=== PATIENT | female | born 2000 | race African-American/Black ===

== ENCOUNTER 2022-07-16 02:49 | Emergency (ER) | payer OTHER, SELFPAY ==
[2022-07-16 02:50] VITALS: BP 145/78; PULSE 110; RESP 18; TEMP 37.8; O2SAT 99
[2022-07-16 02:54] VITALS: BP 145/84; PULSE 110; RESP 18; TEMP 37.8; O2SAT 99; BMI 27.8
[2022-07-16 03:23] VITALS: TEMP 37.8
[2022-07-16] MEDS: ACETAMINOPHEN 500 MG TABLET 1000 MG PO (03:23)
--- NOTE | 2022-07-16 03:23 | ED.GENADULT ---
HPI - General Adult General Chief complaint: Fever Stated complaint: pollen allergies,fever over 100 Time Seen by Provider: 07/16/22 02:53 Source: patient Mode of arrival: ambulatory History of Present Illness HPI narrative: 22-year-old female presents to the emergency department with eye irritation, congestion and mild headache for the past 3 hours. She reports that she started feeling mildly unwell 2 days ago but no specific localizing symptoms. On specific questioning, she tells me that she took Tylenol and ibuprofen for her symptoms but is not able to accurately list me timing or dose of these and contradicts her answer several times making me question if she did try these interventions. There is no severe shortness of breath, no syncope or dizziness. There has been no vomiting. There is no abdominal pain, dysuria or gynecological symptoms. Last menstrual period was last week. There has been no trauma or injury. It is the middle of the night in the emergency department I am having some difficulty understanding what her emergent concern is with her symptoms and do ask for clarification. She is concerned that she could be dehydrated. She assures me that she is still drinking plenty of fluids and has urinated at least 5 times today. She says that her urine is a little dark but has absolutely no dysuria, urgency or frequency. She tells me that her only long-term health problem is asthma. She takes a preventative inhaler, has albuterol she also uses Flonase and Zyrtec. She uses Patanol eyedrops. Denies intoxication or illicit drug use, no pertinent travel. She is COVID vaccinated x4. ROS is notable for the generalized, HEENT symptoms as above only as well as some mild nausea, otherwise denies times 12 systems. Related Data Home Medications Medication Instructions Recorded Confirmed cetirizine 10 mg disintegrating 10 mg PO DAILY 03/31/22 07/16/22 tablet fluticasone furoate 50 1 inh inhalation DAILY 03/31/22 07/16/22 mcg/actuation blister powder for inhalation fluticasone propionate 50 2 spray intranasal DAILY 03/31/22 07/16/22 mcg/actuation nasal spray,suspension olopatadine 0.1 % eye drops 1 drp ophthalmic (eye) DAILY 03/31/22 07/16/22 Allergies Allergy/AdvReac Type Severity Reaction Status Date / Time No Known Drug Allergies Allergy Verified 07/16/22 02:57 [facility] Medical History No significant past medical history Surgical History No significant past surgical history Social History Smoking Status: Never smoker Second hand tobacco smoke exposure: No How often do you have a drink containing alcohol: never How often do you have six or more drinks on one occasion: Never AUDIT-C Alcohol total score: 0 Non-prescribed substance use: denies use Exam Const: Vital Signs, click to edit/add: Vital Signs - 24 hr 07/16/22 02:50 07/16/22 02:54 Temperature 100.0 F H 100.0 F H Pulse Rate [Right Pulse Oximeter] 110 H 110 H Respiratory Rate 18 18 Blood Pressure [Ri ght Arm] 145/78 H Blood Pressure [Ri ght Upper Arm] 145/84 H Pulse Oximetry 99 99 Oxygen Delivery Me thod Room Air Room Air Documenting provider has reviewed patient's vital signs: yes Common normals: no apparent distress General appearance: cooperative, comfortable and well kempt Other: Appears well-nourished, well-hydrated, good historian. HENMT: Common normals: normocephalic and TM's normal bilaterally Head and scalp: normocephalic Face and sinus: normal facial exam Tympanic membrane: TM's normal bilaterally Other: Nose with mild congestion, oropharynx with a mild postnasal drip, good dentition, normal mucosa. Lips are acyanotic. Eye: Common normals: conjunctivae normal General eye: normal appearance of both eyes Conjunctiva: conjunctiva(e) normal Other: No drainage or swelling of the medial canthus. Neck & C-Spine: Common normals: full ROM and no lymphadenopathy Resp: Common normals: normal respiratory effort, no use of accessory muscles and clear to auscultation bilaterally Effort & inspection: able to speak in complete sentences Auscultation: clear to auscultation bilaterally Cardio: Common normals: regular rate, regular rhythm, S1 normal heart sound, S2 normal heart sound and no murmurs Rate: regular rate Rhythm: regular rhythm Heart sounds: S1 normal and S2 normal GI: Common normals: Normal to inspection, nondistended, normoactive bowel sounds present, soft to palpation, non-tender, no hepatosplenomegaly and no masses Palpation: soft and no hepatosplenomegaly Extremity: Common normals: normal to inspection and no pedal edema Psych: Appearance: well kempt Attitude: engaged Activity/motor behavior: appropriate eye contact Insight: insight good Judgement: judgment good Skin: Common normals: no rashes or lesions noted General skin exam: no rashes or lesions noted Course Vital Signs Vital signs: Initial Vital Signs Temperature 100.0 F H 07/16/22 02:50 Temperature Source Temporal Artery Scan 07/16/22 02:50 Pulse Rate 110 H 07/16/22 02:50 Respiratory Rate 18 07/16/22 02:50 Respiratory Effort Normal, Spontaneous, Non-Labored 07/16/22 02:50 Respiratory Depth Normal 07/16/22 02:50 Respiratory Pattern Normal 07/16/22 02:50 Blood Pressure 145/78 H 07/16/22 02:50 Blood Pressure Mean 100 07/16/22 02:50 Blood Pressure Position Sitting 07/16/22 02:50 Pulse Oximetry 99 07/16/22 02:50 Oxygen Delivery Method Room Air 07/16/22 02:50 Sepsis Recent Fever Within 48 Hours No 07/16/22 02:50 Sepsis New/Unexplained Change in Mental Status No 07/16/22 02:50 Sepsis Action Taken by Nursing No Action Required 07/16/22 02:50 Vital Signs Temperature 100.0 F H 07/16/22 02:50 Pulse Rate 110 H 07/16/22 02:50 Respiratory Rate 18 07/16/22 02:50 Blood Pressure 145/78 H 07/16/22 02:50 Pulse Oximetry 99 07/16/22 02:50 Oxygen Delivery Method Room Air 07/16/22 02:50 Temperature 100.0 F H 07/16/22 02:54 Pulse Rate 110 H 07/16/22 02:54 Respiratory Rate 18 07/16/22 02:54 Blood Pressure 145/84 H 07/16/22 02:54 Pulse Oximetry 99 07/16/22 02:54 Oxygen Delivery Method Room Air 07/16/22 02:54 Medical Decision Making MDM Narrative Medical decision making narrative: Mild tachycardia with low-grade fever. Tachycardia can be explained by low-grade fever. No severe respiratory distress, hypoxia or any localizing symptoms of severe infection. Suspect mild viral illness. Discussed how testing is unlikely to be helpful in her clinical scenario. She is doing a great job pushing fluids. She should be more aggressive with Tylenol and ibuprofen but her symptoms should resolve in a few days. I do not recommend further workup at this time. We reviewed the alarm symptoms that would warrant ED presentation. She will be given Tylenol, instructed on taking ibuprofen at 4:00 a.m. if she is still symptomatic. Conservative management otherwise recommended for her congestion and ocular symptoms aside from the current measures she is already using. Follow-up in clinic or urgent care if not improving in a few days. Reiterated that antibiotics should not be given until she is symptomatic for at least 14 days which is unlikely. Discharge Plan Discharge Clinical Impression: Systemic viral illness Patient Disposition: Home, Self-Care Condition: Stable Instructions: Viral Syndrome (ED) Additional Instructions: Your symptoms are consistent with a mild viral illness. There are no clinical signs of dehydration and you are urinating adequately. Your doing a good job of pushing fluids, please continue to do so. It is okay if you do not hold down solid foods for a few days as long as you are getting adequate hydration. A good indicator of hydration is home many times you are urinating in 24 hours. I would like to see you urinating at least 4 times in 24 hours. I expect you to continue having mild eye irritation, congestion, headache and fatigue as well as some mild nausea for another 2-3 days. I would like for you to be more aggressive with Tylenol and ibuprofen to help improve your symptoms overall. Remember the proper dosing of ibuprofen is 600 mg every 6 hours. Based on what you told me, you could repeat your dose at 4:00 a.m.. Proper dosing of Tylenol is 1000 mg every 6 hours. You were given a dose here in the emergency department and you may take your next dose at 9:30 a.m. in the morning. Continue taking this at regular intervals. Your doing an excellent job of managing your congestion with Flonase and you may use [id number] decongestants like Sudafed. Overall, these are not severe and should pass within a few days. If they last more than 14 days you should seek re-evaluation. We do not prescribe antibiotics for symptoms less than 14 days for congestion. There are no signs of any severe breathing difficulties. This is great news. You are at a higher risk than the average person for pneumonia because of your asthma. Continue using your inhalers and Zyrtec as prescribed. Use your rescue inhaler if you need. The eyes do not show any signs of a bacterial infection. This is part of the viral syndrome and does not need eyedrops. You should be re-evaluated in urgent care or primary care clinic if your symptoms are not improving in a few days. You should come back to the emergency department if you are too weak or dizzy to walk short distances like from your bed to the bathroom, you have severe breathing difficulty, or a fever persistently over 100.4 for several days that does not improve with Tylenol and ibuprofen. Activity Level: No Restrictions Discharge Diet: Regular Prescriptions: No Action fluticasone furoate 50 mcg/actuation blister with device 1 inh inhalation DAILY cetirizine 10 mg tablet,disintegrating 10 mg PO DAILY fluticasone propionate 50 mcg/actuation spray,suspension 2 spray intranasal DAILY olopatadine 0.1 % drops 1 drp ophthalmic (eye) DAILY Follow Up/Referrals: Arvin Bran MD [Primary Care Provider] - Stand Alone Forms: [employer] bio Info Instructions
[2022-07-16 03:27] VITALS: BP 135/74; PULSE 98; RESP 18; TEMP 37.7; O2SAT 99
[2022-07-16 03:28] VITALS: BP 135/74; PULSE 98; RESP 18; TEMP 37.7
== END 2022-07-16 03:28 | disposition home or self-care (01) ==
PROVIDERS: Emergency Provider Family Medicine; PCP Otolaryngology
DX: B34.9 Viral infection, unspecified (principal)
CPT/HCPCS: 99282; A9270